=== PATIENT | male | born 1955 | race Caucasian/White ===

== ENCOUNTER 2020-06-04 07:34 | Outpatient (CLI) | payer MEDICARE, SELFPAY ==
[2020-06-04 18:35] LABS: Basophils Absolute Auto 0.1 K/mm3 (0.0-0.1); Eosinophils Absolute Auto 0.3 K/mm3 (0-0.3); Eosinophils Percent Auto 3.2 % (0-4.4); Hematocrit 43.6 % (42.0-52.0); Hemoglobin 13.8 g/dL (14.0-18.0); Immature Granulocyte Absolute 0.04 K/mm3 (0.00-0.031); Immature Granulocyte Percent A 0.4 % (0-0.5); Lymphocytes Absolute Auto 2.56 K/mm3 (0.9-3.2); Lymphocytes Percent Auto 25.9 % (18.3-44.2); Mean Corpuscular HGB Conc 31.7 g/dl (32-36); Mean Corpuscular Hemoglobin 30.7 pg (26-34); Mean Corpuscular Volume 96.9 fl (80-100); Mean Platelet Volume 9.7 fl (7.4-10.4); Monocytes Absolute Auto 0.7 K/mm3 (0.1-0.6); Monocytes Percent Auto 7.5 % (2.6-8.5); Neutrophils Absolute Auto 6.1 K/mm3 (1.3-6.7); Platelet Count Result 362 k/mm3 (150-375); Red Cell Distribution Width 14.2 % (11.5-14.5); White Blood Count 9.9 K/mm3 (4.5-10.0)
[2020-06-04 18:38] LABS: Add Urine Microscopic? YES; Appearance Urine Clear (Clear); Bilirubin Urine Negative (Negative); Blood Urine 1+ (Negative); Color Urine Yellow (Yellow); Glucose Urine UA Negative (Negative); Ketones Urine Negative (Negative); Leukocyte Esterase Ur Negative LEU/UL (Negative); Mucus Urine Rare /lpf; Nitrate Urine Negative (Negative); Protein Urine 1+ mg/dL (Negative); RBC Urine 0-2 /hpf (0-2); Specific Grav Ur 1.019 (1.001-1.035); Urobilinogen Urine Negative mg/dL (<2.0); WBC Urine 0-3 /hpf
[2020-06-04 18:53] LABS: Alanine Aminotransferase 16 U/L (4-50); Albumin Level 4.1 g/dL (3.5-5.1); Alkaline Phosphatase 73 U/L (38-126); Anion Gap 8 mmol/L (8-16); Aspartate Amino Transferase 21 U/L (17-59); Bilirubin,Total 0.3 mg/dL (0.2-1.3); Blood Urea Nitrogen 12 mg/dL (9-20); CRP 0.7 mg/dL (<1.0); Calcium 9.3 mg/dL (8.4-10.2); Carbon Dioxide 25 mmol/L (22-30); Chloride 108 mmol/L (98-107); Cholesterol 160 mg/dL (0-200); Estimated Glomerular Filt Rate > 60; Glucose 106 mg/dL (75-110); HDL Direct 58 mg/dL; Potassium 4.4 mmol/L (3.4-5.0); Sodium 141 mmol/L (137-145); Triglycerides 67 mg/dL (<150)
[2020-06-04 19:03] LABS: LDL Cholesterol Direct 95 mg/dL
[2020-06-04 19:07] LABS: Vitamin D 25 Hydroxy 28.2 ng/mL
[2020-06-04 19:23] LABS: Prostate Specific Antigen 0.7 ng/mL (< OR = 4.0)
[2020-06-08 12:30] LABS: Testosterone Free 64.6 pg/mL (35.0-155.0); Testosterone Total 417 ng/dL (250-1100)
== END 2020-06-04 07:35 | disposition home or self-care (01) ==
PROVIDERS: PCP Family Medicine; Visit Provider Family Medicine
DX: Z00.00 Encounter for general adult medical examination without abnormal findings (principal); E78.5 Hyperlipidemia, unspecified; Z79.899 Other long term (current) drug therapy; M54.9 Dorsalgia, unspecified; G89.29 Other chronic pain; F41.9 Anxiety disorder, unspecified; F32.9 Major depressive disorder, single episode, unspecified; Z82.62 Family history of osteoporosis; Z87.891 Personal history of nicotine dependence; Z82.49 Family history of ischemic heart disease and other diseases of the circulatory system; I10 Essential (primary) hypertension; N99.89 Other postprocedural complications and disorders of genitourinary system; Z12.5 Encounter for screening for malignant neoplasm of prostate
CPT/HCPCS: 36415; 80053; 80061; 81001; 82306; 82607; 82746; 84153; 84402; 84403; 84443; 85025; 86140; G0103

== ENCOUNTER 2020-06-11 08:28 | Outpatient (CLI) | payer MEDICARE, SELFPAY ==
[2020-06-11 18:58] LABS: Total Protein Urine Random 8 mg/dL
[2020-06-11 19:10] LABS: Total Protein Urine 24 Hr 56 mg/24hr (28-141); Total Volume 24 Hour Urine 700 ml
== END 2020-06-11 08:29 | disposition home or self-care (01) ==
LOC: ANHBWCLAB 08:31
PROVIDERS: PCP Family Medicine; Visit Provider Family Medicine
DX: R80.9 Proteinuria, unspecified (principal)
CPT/HCPCS: 81050; 84156

== ENCOUNTER 2020-08-21 08:28 | Outpatient (CLI) | payer MEDICARE, SELFPAY ==
--- NOTE | ~2020-08-21 | NM_ITS ---
EXAMINATION: NM ozzie stress w perfusion DATE: 08/21/2020 11:27 INDICATION: Family history of ischemic heart disease. TECHNIQUE: Rest images were obtained following intravenous administration of 9.88 mCi Tc99m tetrofosm in (Myoview). The patient was infused intravenously with Lexiscan (regadenoson). Then, 31.77 mCi Tc99 m tetrofosmin (Myoview) was administered intravenously, and stress images were obtained. Data was rec onstructed into short axis and horizontal and vertical long axis SPECT images. Gated SPECT images wer e also obtained. COMPARISON: None. FINDINGS: There is no definite reversible or fixed perfusion abnormality to suggest ischemia or infar ction. There is no segmental wall motion abnormality. Left ventricular ejection fraction measures 6 3%. IMPRESSION: 1. No definite ischemia or infarct. 2. Normal left ventricular ejection fraction measuring 63%. Reviewed, dictated and finalized at location A.
--- NOTE | 2020-08-21 10:33 | EST_ITS ---
Patient Info Name: Gloria Diego Age: 64 years : 1955 Gender: Male Ht: 67 in Wt: 180 lbs BSA: 1.98 m2 BP: 159 / 85 mmHg Exam Date: 08/21/2020 10:38 AM Exam Location: [facility] Stress Patient Status: Outpatient Admit Date: 08/21/2020 Staff Ordering Physician: Kwabena Marmolejo DO Attending Provider: Kwabena Marmolejo DO Exercise Technologist: Gildardo Butler RDCS, RT Exercise Physician: Luther Ball DO Exam Type: CA stress ozzie w NM Study Info A regadenoson stress test was performed. Summary 1. 1. Negative lexiscan stress test for ischemic ST changes by ECG criteria. 2. 2. Stable hemodynamics throughout the test. 3. 3. Nuclear scan to follow and will be reported separately. Please correlate with it. 4. 4. Patient informed of the above results. Protocol: Lexiscan Stress ECG Details Stage: REST Duration (min): 1 min : 18 sec HR (bpm): 69 SBP (mmHg): 159 DBP (mmHg): 85 Stage: REST Duration (min): 4 min : 32 sec HR (bpm): 69 SBP (mmHg): 159 DBP (mmHg): 85 Stage: STAGE 1 Duration (min): 0 min : 59 sec HR (bpm): 79 SBP (mmHg): 131 DBP (mmHg): 71 Stage: RECOVERY Duration (min): 1 min : 0 sec HR (bpm): 92 SBP (mmHg): 131 DBP (mmHg): 71 Stage: RECOVERY Duration (min): 2 min : 0 sec HR (bpm): 92 SBP (mmHg): 131 DBP (mmHg): 71 Stage: RECOVERY Duration (min): 3 min : 0 sec HR (bpm): 85 SBP (mmHg): 139 DBP (mmHg): 72 Stage: RECOVERY Duration (min): 3 min : 28 sec HR (bpm): 86 SBP (mmHg): 139 DBP (mmHg): 72 Rest HR: 69 bpm Peak HR: 93 bpm Rest Sys BP: 159 mmHg Peak Sys BP: 139 mmHg Max Pred HR: 155 bpm % Max Pred HR: 60 % Target HR: 132 bpm Max RPP: 12,927 bpm*mmHg Termination Reason: Completed protocol Cardiac Symptoms: Shortness of breath Total Time: 1 min : 0 sec Rest Brandon BP: 85 mmHg Peak Brandon BP: 72 mmHg Total Dose: 0.4 mg Resting ECG Sinus rhythm. Stress ECG No ST changes. Arrhythmias None. Report Signatures
--- NOTE | 2020-08-21 11:25 | ECHO_ITS ---
Patient Info Name: Gloria Diego Age: 64 years : 1955 Gender: Male Ht: 67 in Wt: 180 lbs BSA: 1.98 m2 HR: 69 bpm BP: 151 / 72 mmHg Technical Quality: Good Exam Date: 08/21/2020 11:34 AM Exam Location: [facility] Patient Status: Outpatient Admit Date: 08/21/2020 Staff Ordering Physician: Kwabena Marmolejo DO Mixer Blender: Gildardo Butler RDCS, RT Attending Provider: Kwabena Marmolejo DO Referring Physician: Francie HALL; Exam Type: CA echo doppler color flow Study Info Indications I47.2 - Ventricular tachycardia Complete two-dimensional, color flow and Doppler transthoracic echocardiogram is performed. Strain analysis performed. Summary 1. Complete two-dimensional, color flow and Doppler transthoracic echocardiogram is performed. 2. Left ventricular chamber dimension is normal. 3. Left ventricular systolic function is normal, estimated at 60-65%. 4. The left ventricular diastolic function is normal. 5. E/e' 7 is not elevated. 6. Global longitudinal strain is mildly abnormal at -16.7%. Left Ventricle E/e' 7 is not elevated. Global longitudinal strain is mildly abnormal at -16.7%. Left ventricular chamber dimension is normal. Left ventricular systolic function is normal, estimated at 60-65%. The left ventricular diastolic function is normal. Right Ventricle Right ventricular systolic function is normal and with normal TAPSE 2.0 cm. Right ventricular chamber dimension is normal. Left Atria Left atrial chamber dimension is normal. Right Atria Right atrial chamber dimension is normal. Aortic Valve The aortic valve is trileaflet. There is no aortic valve stenosis. There is no aortic valve regurgitation. Pulmonic Valve There is no pulmonic regurgitation. Mitral Valve There is no mitral valve stenosis. There is no mitral valve regurgitation. Tricuspid Valve There is no tricuspid valve regurgitation. Pericardium/Pleural There is no pericardial effusion. Inferior Vena Cava Normal inferior vena cava with >50% collapse upon inspiration consistent with normal right atrial pressure, 5 mmHg. Aorta The aortic root size at the sinus of Valsalva is normal. Left Ventricular Outflow Tract Name Value Normal LVOT 2D LVOT Diameter 2.0 cm LVOT Doppler LVOT Peak Gradient 5 mmHg LVOT Mean Gradient 2 mmHg LVOT VTI 21 cm LVOT VTI/AV VTI Ratio 0.8 LVOT Stroke Volume 66 ml LVOT CO 4.4 l/min LVOT CI 2.2 l/min/m2 Mitral Valve Name Value Normal MV Doppler MV Decel [place] 337 cm/s2 MV PHT 69 ms MV Area (PHT)
== END 2020-08-21 08:29 | disposition home or self-care (01) ==
PROVIDERS: PCP Family Medicine; Visit Provider Family Medicine
DX: R06.02 Shortness of breath (principal); Z82.49 Family history of ischemic heart disease and other diseases of the circulatory system; Z87.891 Personal history of nicotine dependence; E78.5 Hyperlipidemia, unspecified; R00.0 Tachycardia, unspecified
CPT/HCPCS: 78452; 93017; 93306; A9502; J2785

== ENCOUNTER 2020-09-10 00:14 | Day surgery (SDC) | payer MEDICARE, SELFPAY ==
[2020-08-28 09:11] VITALS: BMI 29.0
[2020-09-10 06:17] VITALS: BP 121/72; PULSE 83; RESP 18; TEMP 36.1; O2SAT 100
[2020-09-10] MEDS: LACTATED RINGERS 1,000 ML 150 ML IV CONT (06:22)
--- NOTE | 2020-09-10 07:08 | WPDANESEPPF ---
Anes - Initial Pre Proc Eval Procedure: Operation Date: 09/10/20 07:30 Proposed Procedures p Screening Colonoscopy - Isaias Gregg MD Date/Time: 09/10/20 07:08 Surgeon: Isaias Gregg MD Pre Op Diagnosis: neoplasm screening Patient Data Age: 64 Gender: M Height: 1.68 m Weight: 82.1 kg Last Vital Signs Temp 36.1 C L 09/10/20 06:17 Pulse 83 09/10/20 06:17 Resp 18 09/10/20 06:17 BP 121/72 09/10/20 06:17 Pulse Ox 100 09/10/20 06:17 Allergies Allergy/AdvReac Type Severity Reaction Status Date / Time No Known Allergies Allergy Verified 09/10/20 06:16 Home Medications Medication Instructions Recorded Confirmed Type atorvastatin 40 mg tablet 40 mg PO DAILY #90 tablet 05/30/20 09/10/20 Rx bupropion HCl 150 mg 24 hr tablet, 150 mg PO QAM #90 tablet 05/30/20 09/10/20 Rx extended release fluoxetine 40 mg capsule 40 mg PO DAILY #90 cap 05/30/20 09/10/20 Rx omeprazole 40 mg capsule,delayed 40 mg PO DAILY #90 cap 05/30/20 09/10/20 Rx release trazodone 50 mg tablet 100 mg PO DAILY PRN #180 tablet 05/30/20 09/10/20 Rx cyclobenzaprine 10 mg tablet 10 mg PO DAILY #90 tablet 05/31/20 09/10/20 Rx Patient hx anesthesia problems: none Family hx anesthesia problems: none PMFSH Past Medical History Medical History (Updated 06/06/20 @ 12:19 by Kwabena Marmolejo DO) Anxiety Chronic GERD patient currently on proton pump inhibitor well controlled Hypertension Surgical History Surgical History History of appendectomy Family History Family History Father Hypertension Heart problem Mother Diabetes mellitus Hypertension Heart problem Social History Social History (Updated 05/30/20 @ 14:20 by Hoa Mascorro CMA) Smoking packs per day: 1 Smoking cigarettes per day: 20.0 Years smoked: 30 Smoking pack-years: 30.00 Smoking status: Former smoker Tobacco type: cigarettes Alcohol intake: current Alcohol use details: rarely Substance use: never Substance use type: marijuana Other substance usage details: twice a week Living arrangements: with family Spiritual care concerns: No Anes - Eval Final PreProcedure Day of Procedure 09/10/20 07:08 Patient weight: overweight Heart: regular rate and rhythm Lungs: clear to auscultation and normal air movement Airway: Mallampati scale class II Neurological: alert and oriented Last oral intake: >/= 8 hours ASA classification: II Emergent: no Anesthetic plan: proceed Anesthesia type and monitoring: general GIVS Informed Consent: The patient's anesthetic plan and its attendant risks and benefits were discussed with the patient/family/POA. Questions were solicited and answers provided to the satisfaction of the patient/family/POA.
--- NOTE | 2020-09-10 07:34 | PM.HPGS ---
History of Present Illness History of Present Illness Consent: Risks, benefits, and alternatives have been discussed and questions answered. Patient agrees to proceed with procedure. Chief complaint: neoplasm screening Narrative: lGoria Diego is a 64 year old male here for first screening colonoscopy Review of Systems Constitutional: Constitutional: Denies headache(s) and Denies weakness Eyes: Eyes: Denies blurry vision ENT: Reports Normal hearing present, Denies headache(s) and Denies neck pain Cardiovascular: Cardiovascular: Denies chest pain and Denies dyspnea Respiratory: Respiratory: Denies dyspnea Gastrointestinal: Gastrointestinal: Reports no additional gastrointestinal complaints Genitourinary: Genitourinary: Denies dysuria Musculoskeletal: Musculoskeletal: Denies neck pain Integumentary/Breasts: Skin/Breast: Denies dry skin Neurologic: Reports Normal hearing present, Denies headache(s) and Denies weakness Psychiatric: Psychiatric: Denies anxiety Endocrine: Endocrine: Denies change in body appearance Hematologic/Lymphatic: Hematologic/Lymphatic: Denies easy bleeding Allergic/Immunologic: Allergic/Immunologic: Denies urticaria PMF Past Medical History Medical History (Updated 09/10/20 @ 07:36 by Isaias Gregg MD) Anxiety Chronic GERD patient currently on proton pump inhibitor well controlled Colon cancer screening Hypertension Surgical History Surgical History History of appendectomy Family History Family History Father Hypertension Heart problem Mother Diabetes mellitus Hypertension Heart problem Social History Social History (Updated 05/30/20 @ 14:20 by Hoa Mascorro CMA) Smoking packs per day: 1 Smoking cigarettes per day: 20.0 Years smoked: 30 Smoking pack-years: 30.00 Smoking status: Former smoker Tobacco type: cigarettes Alcohol intake: current Alcohol use details: rarely Substance use: never Substance use type: marijuana Other substance usage details: twice a week Living arrangements: with family Spiritual care concerns: No Meds Home Medications and Allergies Home Medications Medication Instructions Recorded Confirmed Type atorvastatin 40 mg tablet 40 mg PO DAILY #90 tablet 05/30/20 09/10/20 Rx bupropion HCl 150 mg 24 hr tablet, 150 mg PO QAM #90 tablet 05/30/20 09/10/20 Rx extended release fluoxetine 40 mg capsule 40 mg PO DAILY #90 cap 05/30/20 09/10/20 Rx omeprazole 40 mg capsule,delayed 40 mg PO DAILY #90 cap 05/30/20 09/10/20 Rx release trazodone 50 mg tablet 100 mg PO DAILY PRN #180 tablet 05/30/20 09/10/20 Rx cyclobenzaprine 10 mg tablet 10 mg PO DAILY #90 tablet 05/31/20 09/10/20 Rx Allergies Allergy/AdvReac Type Severity Reaction Status Date / Time No Known Allergies Allergy Verified 09/10/20 06:16 Vital Signs Vital Signs - 24 hr 09/10/20 06:17 Temperature 96.9 F L Pulse Rate 83 Respiratory Rate 18 Blood Pressure 121/72 Pulse Oximetry 100 Exam Const: General: comfortable and no acute distress HENMT: General nose exam: Normal nares present Eyes: General: appearance normal, both eyes and all related structures Neck: Neck: no JVD Resp: Auscultation: clear to auscultation bilaterally Cardio: Rate: regular rate Rhythm: regular rhythm GI: Inspection: non-distended GI Palp: Yes Soft to palpation Skin: General skin exam: normal color Neuro: General: gait normal Speech: normal speech Extrem: General: normal to inspection Psych: Mental Status: mental status grossly normal Assessment and Plan Assessment and plan (1) Colon cancer screening: Code(s): Z12.11 - Encounter for screening for malignant neoplasm of colon Status: Acute Assessment and Plan: colonoscopy
[2020-09-10 08:00] VITALS: BP 104/62; PULSE 59; RESP 20; O2SAT 95
[2020-09-10 08:10] VITALS: BP 114/65; PULSE 64; RESP 25; O2SAT 99
[2020-09-10 08:20] VITALS: BP 113/73; PULSE 59; RESP 16; O2SAT 99
== END 2020-09-10 08:28 | disposition home or self-care (01) ==
PROVIDERS: PCP Family Medicine; Visit Provider Internal Medicine Gastroenterology
PROC: 0DJD8ZZ Inspection of Lower Intestinal Tract, Via Natural or Artificial Opening Endoscopic (ICD-10-PCS; CPT 45378; principal; 2020-09-10 07:30)
DX: Z12.11 Encounter for screening for malignant neoplasm of colon (principal); D12.5 Benign neoplasm of sigmoid colon; D12.3 Benign neoplasm of transverse colon; K64.8 Other hemorrhoids; F41.9 Anxiety disorder, unspecified; K21.9 Gastro-esophageal reflux disease without esophagitis; I10 Essential (primary) hypertension; Z87.891 Personal history of nicotine dependence; F12.90 Cannabis use, unspecified, uncomplicated
CPT/HCPCS: 45385; 88305; J2704; J7120

== ENCOUNTER 2020-12-10 07:39 | Outpatient (CLI) | payer MEDICARE, SELFPAY ==
[2020-12-10 18:37] LABS: Basophils Absolute Auto 0.1 K/mm3 (0.0-0.1); Basophils Percent Auto 0.8 % (0.2-1.2); Eosinophils Absolute Auto 0.4 K/mm3 (0-0.3); Eosinophils Percent Auto 3.6 % (0-4.4); Hemoglobin 13.4 g/dL (14.0-18.0); Immature Granulocyte Absolute 0.03 K/mm3 (0.00-0.031); Immature Granulocyte Percent A 0.3 % (0-0.5); Lymphocytes Percent Auto 16.9 % (18.3-44.2); Mean Corpuscular HGB Conc 32.7 g/dl (32-36); Mean Corpuscular Hemoglobin 30.9 pg (26-34); Mean Corpuscular Volume 94.5 fl (80-100); Mean Platelet Volume 9.2 fl (7.4-10.4); Monocytes Absolute Auto 0.7 K/mm3 (0.1-0.6); Monocytes Percent Auto 6.6 % (2.6-8.5); Neutrophils Absolute Auto 7.2 K/mm3 (1.3-6.7); Neutrophils Percent Auto 71.8 % (45.5-73.1); Platelet Count Result 397 k/mm3 (150-375); Red Blood Count 4.34 M/mm3 (4.6-6.20); Red Cell Distribution Width 13.7 % (11.5-14.5); White Blood Count 10.1 K/mm3 (4.5-10.0)
[2020-12-10 18:59] LABS: Alanine Aminotransferase 22 U/L (4-50); Alkaline Phosphatase 102 U/L (38-126); Anion Gap 10 mmol/L (8-16); Aspartate Amino Transferase 28 U/L (17-59); Bilirubin,Total 0.7 mg/dL (0.2-1.3); Blood Urea Nitrogen 15 mg/dL (9-20); Calcium 9.7 mg/dL (8.4-10.2); Carbon Dioxide 25 mmol/L (22-30); Chloride 106 mmol/L (98-107); Cholesterol 126 mg/dL (0-200); Estimated Glomerular Filt Rate > 60; Glucose 114 mg/dL (65-110); HDL Direct 66 mg/dL; Potassium 4.1 mmol/L (3.4-5.0); Sodium 141 mmol/L (137-145); Triglycerides 92 mg/dL (<150)
[2020-12-10 19:10] LABS: LDL Cholesterol Direct 46 mg/dL
[2020-12-10 19:16] LABS: Vitamin D 25 Hydroxy 25.9 ng/mL
[2020-12-10 19:30] LABS: Prostate Specific Antigen 0.7 ng/mL (< OR = 4.0)
== END 2020-12-10 07:40 | disposition home or self-care (01) ==
PROVIDERS: Family Medicine; PCP Family Medicine; Visit Provider Family Medicine
DX: E78.5 Hyperlipidemia, unspecified (principal); I10 Essential (primary) hypertension; Z79.899 Other long term (current) drug therapy; M54.9 Dorsalgia, unspecified; G89.29 Other chronic pain; F41.9 Anxiety disorder, unspecified; F32.9 Major depressive disorder, single episode, unspecified; Z82.62 Family history of osteoporosis; Z87.891 Personal history of nicotine dependence; Z82.49 Family history of ischemic heart disease and other diseases of the circulatory system; Z12.5 Encounter for screening for malignant neoplasm of prostate
CPT/HCPCS: 36415; 80053; 80061; 82306; 84153; 85025; G0103

== ENCOUNTER 2021-06-26 07:05 | Outpatient (CLI) | payer MEDICARE, SELFPAY ==
[2021-06-26 18:49] LABS: Basophils Absolute Auto 0.1 K/mm3 (0.0-0.1); Basophils Percent Auto 0.9 % (0.2-1.2); Eosinophils Absolute Auto 0.7 K/mm3 (0-0.3); Eosinophils Percent Auto 6.4 % (0-4.4); Hematocrit 43.1 % (42.0-52.0); Hemoglobin 13.5 g/dL (14.0-18.0); Immature Granulocyte Absolute 0.05 K/mm3 (0.00-0.031); Immature Granulocyte Percent A 0.4 % (0-0.5); Lymphocytes Absolute Auto 3.31 K/mm3 (0.9-3.2); Lymphocytes Percent Auto 29.2 % (18.3-44.2); Mean Corpuscular HGB Conc 31.3 g/dl (32-36); Mean Corpuscular Hemoglobin 30.9 pg (26-34); Mean Corpuscular Volume 98.6 fl (80-100); Mean Platelet Volume 9.6 fl (7.4-10.4); Monocytes Absolute Auto 0.9 K/mm3 (0.1-0.6); Monocytes Percent Auto 8.1 % (2.6-8.5); Neutrophils Absolute Auto 6.2 K/mm3 (1.3-6.7); Platelet Count Result 418 k/mm3 (150-375); Red Blood Count 4.37 M/mm3 (4.6-6.20); Red Cell Distribution Width 14.7 % (11.5-14.5); White Blood Count 11.3 K/mm3 (4.5-10.0)
[2021-06-26 20:00] LABS: Hemoglobin A1C 5.3 % (<5.7)
== END 2021-06-26 07:06 | disposition home or self-care (01) ==
PROVIDERS: PCP Family Medicine; Visit Provider Family Medicine
DX: D64.9 Anemia, unspecified (principal); N52.9 Male erectile dysfunction, unspecified; R73.09 Other abnormal glucose
CPT/HCPCS: 36415; 83036; 85025

== ENCOUNTER 2021-07-14 08:31 | Outpatient (CLI) | payer MEDICARE, SELFPAY ==
--- NOTE | ~2021-07-14 | XR_ITS ---
XR_[id number]_CR DATE: 07/14/2021 08:54 INDICATION: Mid to lower rib pain after injury. TECHNIQUE: PA chest. Multiple views of right ribs and left RIBS COMPARISON: None FINDINGS: Normal heart size. There is aortic arch calcification. No hilar or mediastinal enlargement. No pulmonary infiltrate or consolidation, pleural effusion or pulmonary vascular congestion or pneum othorax. No left or right rib fracture or bone destruction. IMPRESSION: No rib fracture is detected No active cardiopulmonary disease Aortic atherosclerosis Reviewed, dictated and finalized at Location A. Reviewed, dictated and finalized at location A.
[2021-07-14 20:18] LABS: Appearance Urine Clear (Clear); Bilirubin Urine Negative (Negative); Blood Urine Trace-lysed (Negative); Color Urine Yellow (Yellow); Glucose Urine UA Negative (Negative); Ketones Urine Negative (Negative); Leukocyte Esterase Ur Negative LEU/UL (NEGATIVE); Nitrate Urine Negative (Negative); Protein Urine Negative (Negative); Urobilinogen Urine 0.2 mg/dL (<2.0)
[2021-07-14 20:50] LABS: RBC Urine 0-2 /hpf (0-2); WBC Urine 0-3 /hpf (0-3)
[2021-07-14 21:01] LABS: Add Urine Microscopic? YES
== END 2021-07-14 08:32 | disposition home or self-care (01) ==
PROVIDERS: PCP Family Medicine; Visit Provider Family Medicine
DX: R07.81 Pleurodynia (principal); D72.829 Elevated white blood cell count, unspecified; R35.0 Frequency of micturition; I70.0 Atherosclerosis of aorta
CPT/HCPCS: 71111; 81001; 87086

== ENCOUNTER 2021-12-10 07:40 | Outpatient (CLI) | payer MEDICARE, SELFPAY ==
[2021-12-10 19:14] LABS: Basophils Absolute Auto 0.1 K/mm3 (0.0-0.1); Basophils Percent Auto 1.2 % (0.2-1.2); Eosinophils Absolute Auto 0.4 K/mm3 (0-0.3); Eosinophils Percent Auto 3.8 % (0-4.4); Hematocrit 43.4 % (42.0-52.0); Hemoglobin 13.4 g/dL (14.0-18.0); Immature Granulocyte Absolute 0.05 K/mm3 (0.00-0.031); Immature Granulocyte Percent A 0.5 % (0-0.5); Lymphocytes Absolute Auto 2.03 K/mm3 (0.9-3.2); Lymphocytes Percent Auto 21.8 % (18.3-44.2); Mean Corpuscular HGB Conc 30.9 g/dl (32-36); Mean Corpuscular Hemoglobin 30.5 pg (26-34); Mean Corpuscular Volume 98.9 fl (80-100); Mean Platelet Volume 9.5 fl (7.4-10.4); Monocytes Absolute Auto 0.8 K/mm3 (0.1-0.6); Monocytes Percent Auto 8.3 % (2.6-8.5); Neutrophils Percent Auto 64.4 % (45.5-73.1); Platelet Count Result 406 k/mm3 (150-375); Red Blood Count 4.39 M/mm3 (4.6-6.20); Red Cell Distribution Width 14.9 % (11.5-14.5); White Blood Count 9.3 K/mm3 (4.5-10.0)
[2021-12-10 19:22] LABS: Alanine Aminotransferase 20 U/L (6-50); Albumin Level 4.1 g/dL (3.5-5.1); Alkaline Phosphatase 84 U/L (38-126); Anion Gap 8 mmol/L (8-16); Aspartate Amino Transferase 48 U/L (17-59); Bilirubin,Total 0.4 mg/dL (0.2-1.3); Blood Urea Nitrogen 11 mg/dL (9-20); Calcium 8.6 mg/dL (8.4-10.2); Carbon Dioxide 25 mmol/L (22-30); Chloride 107 mmol/L (98-107); Estimated Glomerular Filt Rate > 60; Glucose 105 mg/dL (65-110); Potassium 3.9 mmol/L (3.4-5.0); Sodium 140 mmol/L (137-145)
[2021-12-10 19:53] LABS: Prostate Specific Antigen 1.2 ng/mL (< OR = 4.0)
[2021-12-10 20:10] LABS: Cholesterol 139 mg/dL (0-200); HDL Direct 81 mg/dL; Triglycerides 45 mg/dL (<150)
[2021-12-10 20:22] LABS: LDL Cholesterol Direct 39 mg/dL
== END 2021-12-10 07:41 | disposition home or self-care (01) ==
PROVIDERS: PCP Family Medicine; Visit Provider Family Medicine
DX: Z00.00 Encounter for general adult medical examination without abnormal findings (principal); Z12.5 Encounter for screening for malignant neoplasm of prostate; E78.5 Hyperlipidemia, unspecified; Z79.899 Other long term (current) drug therapy; D64.9 Anemia, unspecified
CPT/HCPCS: 36415; 80053; 80061; 84153; 85025; G0103

== ENCOUNTER 2022-05-06 14:27 | Outpatient (CLI) | payer MEDICARE, SELFPAY ==
--- NOTE | ~2022-05-06 | XR_ITS ---
XR hand RT min 3V DATE: 05/06/2022 14:35 INDICATION: Right hand pain, first metacarpophalangeal pain for 6 months TECHNIQUE: 3 views COMPARISON: None FINDINGS: There is prominent joint space narrowing and spurring at the first carpometacarpal joint co nsistent with osteoarthritis. There is mild osteoarthritis at the second and third metacarpophalangea l joints. No erosive change. No fracture, dislocation, periosteal reaction or bone destruction. IMPRESSION: Polyarticular osteoarthritis, most prominent at first carpometacarpal joint Reviewed, dictated and finalized at location B. IMPRESSION: Polyarticular osteoarthritis, most prominent at first carpometacarp al joint
== END 2022-05-06 14:28 | disposition home or self-care (01) ==
LOC: ANHBWCIMG 14:28
PROVIDERS: PCP Family Medicine; Visit Provider Family Medicine
DX: M19.041 Primary osteoarthritis, right hand (principal)
CPT/HCPCS: 73130

== ENCOUNTER 2022-05-19 08:04 | Outpatient (CLI) | payer MEDICARE, SELFPAY ==
--- NOTE | ~2022-05-19 | XR_ITS ---
EXAMINATION: XR humerus RT DATE: 05/19/2022 08:43 INDICATION: Right arm pain. TECHNIQUE: 2 views of right humerus were obtained. COMPARISON: None. FINDINGS: Bone alignment is normal. No fracture. There is mild osteoarthritis of glenohumeral joint a nd elbow joint and moderate osteoarthritis of acromioclavicular joint. IMPRESSION: 1. Polyarticular osteoarthritis. Reviewed, dictated and finalized at location A.
[2022-05-19 18:38] LABS: Alanine Aminotransferase 28 U/L (6-50); Albumin Level 4.5 g/dL (3.5-5.1); Alkaline Phosphatase 90 U/L (38-126); Anion Gap 7 mmol/L (8-16); Aspartate Amino Transferase 49 U/L (17-59); Bilirubin,Total 0.4 mg/dL (0.2-1.3); Blood Urea Nitrogen 16 mg/dL (9-20); Calcium 9.2 mg/dL (8.4-10.2); Carbon Dioxide 27 mmol/L (22-30); Chloride 105 mmol/L (98-107); Estimated Glomerular Filt Rate > 60; Glucose 90 mg/dL (65-110); Potassium 4.2 mmol/L (3.4-5.0); Sodium 139 mmol/L (137-145)
[2022-05-19 18:39] LABS: Basophils Absolute Auto 0.1 K/mm3 (0.0-0.1); Basophils Percent Auto 1.1 % (0.2-1.2); Eosinophils Absolute Auto 0.3 K/mm3 (0-0.3); Eosinophils Percent Auto 3.2 % (0-4.4); Hematocrit 41.9 % (42.0-52.0); Hemoglobin 13.4 g/dL (14.0-18.0); Immature Granulocyte Absolute 0.05 K/mm3 (0.00-0.031); Immature Granulocyte Percent A 0.6 % (0-0.5); Lymphocytes Absolute Auto 1.57 K/mm3 (0.9-3.2); Lymphocytes Percent Auto 18.5 % (18.3-44.2); Mean Corpuscular Hemoglobin 32.1 pg (26-34); Mean Corpuscular Volume 100.5 fl (80-100); Mean Platelet Volume 9.3 fl (7.4-10.4); Monocytes Absolute Auto 0.7 K/mm3 (0.1-0.6); Monocytes Percent Auto 8.1 % (2.6-8.5); Neutrophils Absolute Auto 5.8 K/mm3 (1.3-6.7); Neutrophils Percent Auto 68.5 % (45.5-73.1); Platelet Count Result 390 k/mm3 (150-375); Red Blood Count 4.17 M/mm3 (4.6-6.20); Red Cell Distribution Width 14.8 % (11.5-14.5); White Blood Count 8.5 K/mm3 (4.5-10.0)
[2022-05-19 19:08] LABS: Vitamin D 25 Hydroxy 31.5 ng/mL
== END 2022-05-19 08:05 | disposition home or self-care (01) ==
PROVIDERS: PCP Family Medicine; Visit Provider Family Medicine
DX: G47.00 Insomnia, unspecified (principal); G47.33 Obstructive sleep apnea (adult) (pediatric); M72.0 Palmar fascial fibromatosis [Dupuytren]; S46.219A Strain of muscle, fascia and tendon of other parts of biceps, unspecified arm, initial encounter; D64.9 Anemia, unspecified; N40.0 Benign prostatic hyperplasia without lower urinary tract symptoms; N52.9 Male erectile dysfunction, unspecified; R79.89 Other specified abnormal findings of blood chemistry; E78.5 Hyperlipidemia, unspecified; K21.9 Gastro-esophageal reflux disease without esophagitis; M54.9 Dorsalgia, unspecified; F41.9 Anxiety disorder, unspecified; G89.29 Other chronic pain; F32.9 Major depressive disorder, single episode, unspecified; M79.603 Pain in arm, unspecified; Z79.899 Other long term (current) drug therapy; M19.011 Primary osteoarthritis, right shoulder; X58.XXXA Exposure to other specified factors, initial encounter
CPT/HCPCS: 36415; 73060; 80053; 82306; 85025

== ENCOUNTER 2022-05-29 07:30 | Outpatient (CLI) | payer MEDICARE, SELFPAY ==
--- NOTE | ~2022-05-29 | US_ITS ---
EXAMINATION: US aorta DATE: 05/29/2022 08:28 CDT INDICATION: Personal history of nicotine dependence TECHNIQUE: Grayscale, color Doppler, and pulsed Doppler images of the aorta and common iliac arteries were obtained. COMPARISON: None. FINDINGS: The proximal aorta measures 2.7 cm greatest sagittal dimension. The mid aorta measures 2.2 cm greates t sagittal dimension. The distal aorta measures 1.8 cm greatest sagittal dimension. The right common internal iliac artery measures 1.1 cm. The left common iliac artery measures 1.1 cm. There is moderat e atherosclerotic plaque. IMPRESSION: 1. Normal caliber aorta without evidence for aneurysm. Reviewed, dictated and finalized at location A.
== END 2022-05-29 07:31 | disposition home or self-care (01) ==
PROVIDERS: PCP Family Medicine; Visit Provider Family Medicine
DX: Z87.891 Personal history of nicotine dependence (principal)
CPT/HCPCS: 76775

== ENCOUNTER 2022-09-03 08:35 | Outpatient (CLI) | payer MEDICARE, SELFPAY ==
--- NOTE | ~2022-09-03 | MR_ITS ---
MRI of the right shoulder Technique: Axial proton-density fat-sat images, coronal proton density fat-sat and T2 fat-sat images, and sagittal T1-weighted and T2 fat-sat images were acquired. Clinical History: Osteoarthritis Findings: There is advanced degenerative change at the AC joint, with fluid in the joint space. Corac oclavicular, coracoacromial, and coracohumeral ligaments are intact. There is probable complete, full-thickness tear of the entire supraspinatus tendon, which is retracte d to the 12:00 position of the humeral head. Fluid-filled gap measures approximately 2.9 x 3.8 cm in extent. Tear may extend to the anterior most portion of the infraspinatus tendon. The bulk of the inf raspinatus tendon otherwise is intact. There is full-thickness tearing involving the majority of the subscapularis tendon, with inferior mos t fibers remaining intact. Tendon of long head of the biceps is not clearly visualized, presumably ru ptured and retracted out of the [id number]-te-xrop. No discrete, detached labral tear identified. Inferior glenohumeral ligament is intact. There is a small glenohumeral joint effusion, with fluid pa ssing through the rotator cuff defect into the subacromial/subdeltoid bursa. No muscle atrophy presen t. There is probable minimal edematous change of the supraspinatus muscle belly. No significant degen erative change of the glenohumeral joint. Impression: Complete, full-thickness tear of the entire supraspinatus tendon, probably extending to involve the a nterior most portion of the infraspinatus tendon. Please see details above. Full-thickness tear involving the majority of the superior and midportion of the subscapularis tendon . Inferior subscapularis fibers appear to remain intact. Rupture of the proximal tendon of long head of the biceps, which is presumably retracted outside the field of view into the upper arm. Advanced AC joint degenerative change. Glenohumeral joint effusion with fluid passing through the rotator cuff defect into the subacromial/s ubdeltoid bursa. Reviewed, dictated and finalized at location . Impression: Complete, full-thickness tear of the entire supraspinatus tendon, probably exte nding to involve the anterior most portion of the infraspinatus tendon. Please see details above. Full-thickness tear involving the majority of the superior and midportion of th e subscapularis tendon. Inferior subscapularis fibers appear to remain intact. Rupture of the proximal tendon of long head of the biceps, which is presumably retracted outside the field of view into the upper arm. Advanced AC joint degenerative change. Glenohumeral joint effusion with fluid passing through the rotator cuff defect into the subacromial/subdeltoid bursa.
== END 2022-09-03 08:36 | disposition home or self-care (01) ==
PROVIDERS: PCP Nurse Practitioner Adult Health; Visit Provider Nurse Practitioner Adult Health
DX: M19.011 Primary osteoarthritis, right shoulder (principal); M75.121 Complete rotator cuff tear or rupture of right shoulder, not specified as traumatic
CPT/HCPCS: 73221

== ENCOUNTER 2023-01-14 08:05 | Outpatient (CLI) | payer MEDICARE, SELFPAY ==
[2023-01-14 21:00] LABS: Alanine Aminotransferase 15 U/L (6-50); Alkaline Phosphatase 85 U/L (38-126); Anion Gap 5 mmol/L (8-16); Aspartate Amino Transferase 28 U/L (17-59); Bilirubin,Total 0.4 mg/dL (0.2-1.3); Blood Urea Nitrogen 15 mg/dL (9-20); Calcium 9.1 mg/dL (8.4-10.2); Carbon Dioxide 26 mmol/L (22-30); Chloride 108 mmol/L (98-107); Cholesterol 166 mg/dL (0-200); Estimated Glomerular Filt Rate > 60; Glucose 101 mg/dL (65-110); HDL Direct 97 mg/dL; Potassium 4.1 mmol/L (3.4-5.0); Sodium 139 mmol/L (137-145); Triglycerides 60 mg/dL (<150)
[2023-01-14 21:09] LABS: Basophils Absolute Auto 0.1 K/mm3 (0.0-0.1); Basophils Percent Auto 1.1 % (0.2-1.2); Eosinophils Absolute Auto 0.3 K/mm3 (0-0.3); Eosinophils Percent Auto 3.5 % (0-4.4); Hematocrit 42.1 % (42.0-52.0); Hemoglobin 13.2 g/dL (14.0-18.0); Immature Granulocyte Absolute 0.03 K/mm3 (0.00-0.031); Immature Granulocyte Percent A 0.3 % (0-0.5); Lymphocytes Absolute Auto 2.06 K/mm3 (0.9-3.2); Lymphocytes Percent Auto 21.8 % (18.3-44.2); Mean Corpuscular HGB Conc 31.4 g/dl (32-36); Mean Corpuscular Hemoglobin 30.5 pg (26-34); Mean Corpuscular Volume 97.2 fl (80-100); Mean Platelet Volume 9.8 fl (7.4-10.4); Monocytes Absolute Auto 0.6 K/mm3 (0.1-0.6); Monocytes Percent Auto 6.6 % (2.6-8.5); Neutrophils Absolute Auto 6.3 K/mm3 (1.3-6.7); Neutrophils Percent Auto 66.7 % (45.5-73.1); Platelet Count Result 364 k/mm3 (150-375); Red Blood Count 4.33 M/mm3 (4.6-6.20); Red Cell Distribution Width 16.4 % (11.5-14.5); White Blood Count 9.4 K/mm3 (4.5-10.0)
[2023-01-14 21:11] LABS: LDL Cholesterol Direct 58 mg/dL
== END 2023-01-14 08:06 | disposition home or self-care (01) ==
LOC: ANHBWCLAB 08:06
PROVIDERS: PCP Nurse Practitioner Adult Health; Visit Provider Nurse Practitioner Adult Health
DX: E78.5 Hyperlipidemia, unspecified (principal)
CPT/HCPCS: 36415; 80053; 80061; 85025

== ENCOUNTER 2023-06-16 08:56 | Outpatient (CLI) | payer MEDICARE, SELFPAY ==
[2023-06-16 20:54] LABS: Basophils Absolute Auto 0.1 K/mm3 (0.0-0.1); Basophils Percent Auto 0.7 % (0.2-1.2); Eosinophils Absolute Auto 0.3 K/mm3 (0-0.3); Eosinophils Percent Auto 2.1 % (0-4.4); Hematocrit 46.5 % (42.0-52.0); Hemoglobin 14.5 g/dL (14.0-18.0); Immature Granulocyte Absolute 0.06 K/mm3 (0.00-0.031); Immature Granulocyte Percent A 0.5 % (0-0.5); Lymphocytes Absolute Auto 1.93 K/mm3 (0.9-3.2); Lymphocytes Percent Auto 15.1 % (18.3-44.2); Mean Corpuscular HGB Conc 31.2 g/dl (32-36); Mean Corpuscular Hemoglobin 31.1 pg (26-34); Mean Corpuscular Volume 99.8 fl (80-100); Mean Platelet Volume 9.4 fl (7.4-10.4); Monocytes Absolute Auto 0.8 K/mm3 (0.1-0.6); Neutrophils Absolute Auto 9.6 K/mm3 (1.3-6.7); Neutrophils Percent Auto 75.6 % (45.5-73.1); Platelet Count Result 440 k/mm3 (150-375); Red Blood Count 4.66 M/mm3 (4.6-6.20); Red Cell Distribution Width 16.2 % (11.5-14.5); White Blood Count 12.7 K/mm3 (4.5-10.0)
[2023-06-16 21:07] LABS: Alanine Aminotransferase 32 U/L (6-50); Albumin Level 4.7 g/dL (3.5-5.1); Alkaline Phosphatase 92 U/L (38-126); Anion Gap 6 mmol/L (4-12); Aspartate Amino Transferase 54 U/L (17-59); Bilirubin,Total 0.6 mg/dL (0.2-1.3); Blood Urea Nitrogen 15 mg/dL (9-20); Calcium 9.9 mg/dL (8.4-10.2); Carbon Dioxide 25 mmol/L (22-30); Chloride 108 mmol/L (98-107); Cholesterol 170 mg/dL (0-200); Estimated Glomerular Filt Rate > 60; Glucose 91 mg/dL (65-110); Potassium 4.3 mmol/L (3.4-5.0); Sodium 139 mmol/L (137-145); Triglycerides 70 mg/dL (<150)
[2023-06-16 21:11] LABS: Vitamin D 25 Hydroxy 34.8 ng/mL
[2023-06-16 21:13] LABS: LDL Cholesterol Direct 43 mg/dL
[2023-06-16 21:31] LABS: Prostate Specific Antigen 0.9 ng/mL (< OR = 4.0)
[2023-06-16 22:10] LABS: Folic Acid > 20.0 ng/mL (2.76->20)
[2023-06-16 22:11] LABS: HDL Direct 140 mg/dL
[2023-06-16 22:39] LABS: Iron 95 ug/dL (49-181)
[2023-06-16 22:50] LABS: Percent Iron Saturation 25 % (20-50)
== END 2023-06-16 08:57 | disposition home or self-care (01) ==
PROVIDERS: PCP Nurse Practitioner Adult Health; Visit Provider Nurse Practitioner Adult Health
DX: E78.5 Hyperlipidemia, unspecified (principal); R41.3 Other amnesia; D64.9 Anemia, unspecified; Z12.5 Encounter for screening for malignant neoplasm of prostate; R79.89 Other specified abnormal findings of blood chemistry; Z79.899 Other long term (current) drug therapy
CPT/HCPCS: 36415; 80053; 80061; 82306; 82607; 82728; 82746; 83540; 83550; 84153; 84443; 85025; G0103

== ENCOUNTER 2023-06-17 10:05 | Outpatient (CLI) | payer MEDICARE, SELFPAY ==
[2023-06-18 10:18] LABS: Protein, Total 7.1 g/dL (6.1-8.1)
[2023-06-18 15:08] LABS: Albumin 4.5 g/dL (3.8-4.8); Alpha 1 Globulin 0.3 g/dL (0.2-0.3); Alpha 2 Globulin 0.6 g/dL (0.5-0.9); Beta 1 Globulin 0.5 g/dL (0.4-0.6); Gamma Globulin 0.9 g/dL (0.8-1.7)
== END 2023-06-17 10:06 | disposition home or self-care (01) ==
PROVIDERS: PCP Nurse Practitioner Adult Health; Visit Provider Nurse Practitioner Adult Health
DX: D72.829 Elevated white blood cell count, unspecified (principal); R63.4 Abnormal weight loss; R61 Generalized hyperhidrosis
CPT/HCPCS: 36415; 84155; 84165

== ENCOUNTER 2023-06-22 11:04 | Outpatient (CLI) | payer MEDICARE, SELFPAY ==
--- NOTE | ~2023-06-22 | MR_ITS ---
MRI of the brain Clinical History: Amnesia Technique: Axial and sagittal T1-weighted images were acquired. These were followed by axial T2-weigh kassandra, diffusion weighted, gradient, and FLAIR images. Findings: There is no acute infarct, acute intracranial hemorrhage, or mass lesion. There are moderat e chronic microvascular ischemic changes in the periventricular white matter bilaterally. Ventricles and subarachnoid spaces are unremarkable. Orbits are unremarkable. Paranasal sinuses and m astoid air cells are clear. Major intracranial flow voids are intact. Sagittal midline structures are intact. IMPRESSION: No acute abnormality. Moderate chronic microvascular ischemic changes. Reviewed, dictated and finalized at location M.
== END 2023-06-22 11:05 ==
LOC: GOSHIMG 11:05
PROVIDERS: PCP Nurse Practitioner Adult Health; Visit Provider Nurse Practitioner Adult Health
DX: R41.3 Other amnesia (principal)
CPT/HCPCS: 70551

== ENCOUNTER 2024-07-17 08:39 | Outpatient (CLI) | payer MEDICARE, SELFPAY ==
--- OUTSIDE RECORDS SUMMARY | 2024-07-17 09:01 | XMS_ITS | Referral Summary ---
Author Organization [facility] Address [address] [place] [address] Care Team Providers Care Diamond Die Polisher Name Role Phone Branden Ramírez MD Unavailable [phone] Cristian Longo MD Primary Care Provider [phone] Allergies No known active allergies Medications amLODIPine (NORVASC) 10 mg tablet Take 1 tablet (10 mg total) by mouth daily 3 Active atorvastatin (LIPITOR) 40 mg tablet Take 1 tablet (40 mg total) by mouth daily 3 Active buPROPion XL (WELLBUTRIN XL) 300 mg 24 hr tablet Take 1 tablet (300 mg total) by mouth daily 3 Active FLUoxetine (PROzac) 40 mg capsule Take 1 capsule (40 mg total) by mouth daily 3 Active omeprazole (PriLOSEC) 40 mg capsule Take 1 capsule (40 mg total) by mouth daily 3 Active traZODone (DESYREL) 50 mg tablet Take 1 tablet (50 mg total) by mouth nightly 3 Active cyclobenzaprine (FLEXERIL) 10 mg tablet Take 1 tablet (10 mg total) by mouth daily Active sildenafiL (VIAGRA) 100 mg tablet Take 1 tablet (100 mg total) by mouth daily as needed for erectile dysfunction Active docusate sodium (COLACE) 100 mg capsuleIndicati ons:constipatio n Take 1 capsule (100 mg total) by mouth 2 (two) times a day 30 capsule 3 Active Active Problems Problem Noted Date Diagnosed Date Complete tear of right rotator cuff 09/22/2022 Social History Tobacco Use Types Packs/Day Years Used Date Smoking Tobacco: Former Cigarettes Q uit: 2017 AUDIT-C Answer Date Recorded Q1: How often do you have a drink containing alcohol? 4 or more times a week 09/28/2022 Q2: How many drinks containi ng alcohol do you have on a typical day when you are drinking? 5 or 6 Q3: How often do you have si x or more drinks on one occasion? Weekly 09/28/2022 Personal Safety Answer Date Recorded Have you ever been in or are you currently in a harmful physical or emotional relationship or is someone making you feel afraid or unsafe? 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 Gender Identity Not on file Sexual Orientation Not on file Last Filed Vital Signs Vital Sign Reading Time Taken Comments Blood Pressure 141/80 10/07/2022 12:15 PM CDT Pulse 82 10/07/2022 12:20 PM CDT Temperature 36.3 C (97.4 F) 10/07/2022 12:15 PM CDT Respiratory Rate 18 10/07/2022 12:20 PM CDT Oxygen Saturation 95% 10/07/2022 12:20 PM CDT Inhaled Oxygen Concentration - - Weight 75.3 kg (166 lb 0.1 oz) 10/07/2022 7:07 A M CDT Height 167.6 cm (5' 6) 10/07/2022 7:07 AM CDT Body Mass Index 26.79 10/07/2022 7:07 AM CDT Plan of Treatment Not on file Medical Devices Implanted Type Area Cw Operator Device Identifier Shelf Expiration Date Model / Serial / Lot [employer] Corkscrew L4.75 Mr Tape Full Thread [place] Suture Biocomposite Sterile Disposable Latex Free [id number] - [id number] Implanted:Qty: 1 on 10/07/2022 by Branden Ramírez MD at [facility] Right: Shoulder [employer] [id number] 06/07/2026 AR-1927BC T-475 / / [id number] [employer] Corkscrew L4.75 Mr Tape Full Thread [place] Suture Biocomposite Sterile Disposable Latex Free [id number] - [id number] Implanted:Qty: 1 on 10/07/2022 by Branden Ramírez MD at [facility] Right: Shoulder [employer] [id number] 06/07/2026 AR-1927BC T-475 / / [id number] [employer] Corkscrew L4.75 Mr Tape Full Thread [place] Suture Biocomposite Sterile Disposable Latex Free [id number] - [id number] Implanted:Qty: 1 on 10/07/2022 by Branden Ramírez MD at [facility] Right: Shoulder [employer] [id number] 06/07/2026 AR-1927BC T-475 / / [id number] [employer] Ar-2324 Bcm Swivelock 4.75mm 24.5mm Self Punch Vent Shoulder Ballwin Suture - [id number] Implanted:Qty: 1 on 10/07/2022 by Branden Ramírez MD at [facility] Right: Shoulder [employer] [id number] 07/08/2026 AR-2324BC M / / [id number] [employer] Ar-2324 Bcm Swivelock 4.75mm 24.5mm Self Punch Vent Shoulder [place] Suture - [id number] Implanted:Qty: 1 on 10/07/2022 by Branden Ramírez MD at [facility] Right: Shoulder [employer] [id number] 07/08/2026 AR-2324BC M / / [id number] Insurance [employer] MEDICARE HMO Care Teams Diamond Die Polisher Relationship Specialty Start Date End Date Cristian Longo MD PCP - General Family Practice 09/25/22 Branden Ramírez MD Consulting Physician Orthopedic Surgery 09/23/22
--- OUTSIDE RECORDS SUMMARY | 2024-07-17 09:01 | XMS_ITS | Clinical Summary ---
Author Organization [facility] Address [address] [place] [address] Care Team Providers Care Wildlife Forensic Geneticist Name Role Phone Branden Ramírez MD Unavailable [phone] Cristian Longo MD Primary Care Provider [phone] Allergies No known active allergies Medications amLODIPine [...] Complete tear of right rotator cuff 09/22/2022 Surgical History Surgery Date Site/Laterality Comments APPENDECTOMY COLONOSCOPY NOSE SURGERY Medical History Medical History Date Comments Complete tear of right rotator cuff, unspecified whether traumatic Anxiety HTN (hypertension) HLD (hyperlipidemia) GERD (gastroesophageal reflux disease) Social History Tobacco Use Types Packs/Day Years [...] on file 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 Gender Identity Not on file Sexual Orientation Not on file Obstetrics History Last Filed Vital Signs Vital Sign Reading [...] 10/07/2022 7:07 AM CDT Plan of Treatment Health Maintenance Due Date Last Done Comments Colon Cancer Screening-Colonoscopy 1954 Depression Screening 1954 Hepatitis C Screening 1954 Prostate Cancer Screening-PSA 1954 DTaP/Tdap/Td Vaccine (1 - Tdap) 1965 Hepatitis B Screening 1972 Pneumococcal vaccine 65+ (1 of 1 - PCV) 2004 Zoster Vaccine (1 of 2) 2004 Abdominal Aortic Aneurysm (AAA) Screen 11/22/2019 Well Visit 65+ 11/22/2019 Fall Risk Assessment 10/08/2023 10/07/2022 Influenza Vaccine (Season Ended) 2024 Medical Devices Implanted Type Area Professional Nursing Tutor Device Identifier Shelf Expiration Date Model / Serial / Lot [employer] Corkscrew L4.75 Mr Tape Full Thread [place] Suture Biocomposite Sterile Disposable Latex Free [id number] - [id number] Implanted:Qty: 1 on 10/07/2022 by Branden Ramírez MD at [facility] Right: Shoulder [employer] [id number] 06/07/2026 AR-1927BC T-475 / / [id number] [employer] Corkscrew L4.75 Mr Tape Full Thread [place] Suture Biocomposite Sterile Disposable Latex Free [id number] - [id number] Implanted:Qty: 1 on 10/07/2022 by Branden Ramírez MD at [facility] Right: Shoulder [employer] [id number] 06/07/2026 AR-1927BC T-475 / / [id number] [employer] Corkscrew L4.75 Mr Tape Full Thread [place] Suture Biocomposite Sterile Disposable Latex Free [id number] - [id number] Implanted:Qty: 1 on 10/07/2022 by Branden Ramírez MD at [facility] Right: Shoulder [employer] [id number] 06/07/2026 AR-1927BC T-475 / / [id number] [employer] Ar-2324 Bcm Swivelock 4.75mm 24.5mm Self Punch Vent Shoulder [place] Suture - [id number] Implanted:Qty: 1 on 10/07/2022 by Branden Ramírez MD at [facility] Right: Shoulder [employer] [id number] 07/08/2026 AR-2324BC M / / [id number] [employer] Ar-2324 Bcm Swivelock 4.75mm 24.5mm Self Punch Vent Shoulder [place] Suture - [id number] Implanted:Qty: 1 on 10/07/2022 by Branden Ramírez MD at [facility] Right: Shoulder [employer] [id number] 07/08/2026 AR-2324BC M / / [id number] Insurance [employer] MEDICARE HMO Care Teams Wildlife Forensic Geneticist Relationship Specialty Start Date End Date Cristian Longo MD PCP - General Family Practice 09/25/22 Branden Ramírez MD Consulting Physician Orthopedic Surgery 09/23/22
--- OUTSIDE RECORDS SUMMARY | 2024-07-17 09:01 | XMS_ITS | Clinical Summary ---
Author Organization [facility] Address [address] [place] [address] Phone Care Team Providers Care Audio Visual Director Name Role Phone Lilian Sales Devon AMEZCUA Primary Care Provider [phone] Allergies No known active allergies Medications donepezil (ARICEPT) 5 MG Tablet TAKE 1 TABLET BY MOUTH EVERY DAY AT BEDTIME 07/20/2023 Active traZODone (DESYREL) 50 MG Tablet Take 50 mg by mouth nightly. Active amLODIPine (NORVASC) 10 MG Tablet Take 10 mg by mouth daily. Active atorvastatin (LIPITOR) 40 MG Tablet Take 40 mg by mouth daily. Active FLUoxetine (PROZAC) 40 MG Capsule Take 40 mg by mouth daily. Active omeprazole (PriLOSEC) 40 MG CAPSULE DELAYED RELEASE Take 40 mg by mouth daily. Active buPROPion (WELLBUTRIN) 300 MG TABLET SR 24 HR XL tablet Take 300 mg by mouth every morning. Active MEMANTINE HCL PO Take 10 mg by mouth. 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 Gender Identity Not on file Sexual Orientation Not on file Last Filed Vital Signs Vital Sign Reading Time Taken Comments Blood Pressure - - Pulse - - Temperature - - Respiratory Rate - - Oxygen Saturation - - Inhaled Oxygen Concentration - - Weight - - Height 170.2 cm (5' 7) 09/22/2023 2:01 PM CDT Body Mass Index - - Plan of Treatment Health Maintenance Due Date Last Done Comments Hepatitis C Virus (HCV) Screening 1954 TdaP Immunization 1954 Pneumococcal Immunization (50+ years) (1 of 2 - PCV) 1973 Colonoscopy 11/22/1999 Colorectal Cancer Screening 11/22/1999 Cologuard 2004 Immunochemical Fecal Occult Blood 2004 Lung Cancer Screening 2004 PSA Discussion 2009 AAA Screening Ultrasound 11/22/2019 Influenza Immunization (#1) 10/10/202312/09, 11/06/2021, 12/10/2020, Additional history exists SARS-COV-2 Immunization ( season) 2023 11/06/2021, 01/27/2021, 03/22/2020, Additional history exists Zoster Immunization Completed 08/29/2020, 0 Respiratory Syncytial Virus (RSV) Immunization (Adult) Completed 12/23/2022 Hepatitis B Immunization Aged Out No longer eligible based on patient's age to complete this topic Meningococcal Immunization (ACWY) Aged Out No longer eligible based on patient's age to complete this topic Rotavirus Immunization Aged Out No lo nger eligible based on patient's age to complete this topic Insurance MEDICARE C HUMANA Care Teams Audio Visual Director Relationship Specialty Start Date End Date Lilian Sales APRN PCP - General Advanced Practice Nurse 09/21/23
[2024-07-17 20:24] LABS: Cholesterol 181 mg/dL (0-200); Triglycerides 59 mg/dL (<150)
[2024-07-17 20:25] LABS: Alanine Aminotransferase 25 U/L (6-50); Albumin Level 4.2 g/dL (3.5-5.1); Alkaline Phosphatase 95 U/L (38-126); Anion Gap 7 mmol/L (4-12); Aspartate Amino Transferase 48 U/L (17-59); Bilirubin,Total 0.3 mg/dL (0.2-1.3); Blood Urea Nitrogen 16 mg/dL (9-20); Calcium 9.4 mg/dL (8.4-10.2); Carbon Dioxide 25 mmol/L (22-30); Chloride 106 mmol/L (98-107); Estimated Glomerular Filt Rate > 60; Glucose 99 mg/dL (65-110); Sodium 138 mmol/L (137-145)
[2024-07-17 20:28] LABS: Hematocrit 40.5 % (42.0-52.0); Hemoglobin 12.8 g/dL (14.0-18.0); Mean Corpuscular HGB Conc 31.6 g/dl (32-36); Mean Corpuscular Volume 98.1 fl (80-100); Mean Platelet Volume 9.5 fl (7.4-10.4); Platelet Count Result 401 k/mm3 (150-375); Red Blood Count 4.13 M/mm3 (4.6-6.20); Red Cell Distribution Width 16.5 % (11.5-14.5)
[2024-07-17 20:35] LABS: LDL Cholesterol Direct 31 mg/dL
[2024-07-17 20:40] LABS: Hemoglobin A1C 4.8 % (<5.7)
[2024-07-17 20:52] LABS: Prostate Specific Antigen 0.7 ng/mL (< OR = 4.0)
[2024-07-17 20:54] LABS: Iron 69 ug/dL (49-181)
[2024-07-17 21:04] LABS: Percent Iron Saturation 18 % (20-50)
[2024-07-17 21:52] LABS: HDL Direct > 110 mg/dL
[2024-07-19 12:03] LABS: Homocysteine 12.6 umol/L (< or = 15.2)
[2024-07-19 12:14] LABS: Red Blood Cell Folate 586 ng/mL RBC (>280)
[2024-07-20 15:44] LABS: Methylmalonic Acid 94 nmol/L (69-390)
[2024-07-21 00:33] LABS: Immunofixation, Serum Normal pattern.
== END 2024-07-17 08:40 | disposition home or self-care (01) ==
PROVIDERS: PCP Nurse Practitioner Adult Health; Visit Provider Psychiatry & Neurology Neurology
DX: G25.81 Restless legs syndrome (principal); I67.9 Cerebrovascular disease, unspecified; R32 Unspecified urinary incontinence; G95.9 Disease of spinal cord, unspecified; G62.9 Polyneuropathy, unspecified; R27.0 Ataxia, unspecified; F03.90 Unspecified dementia, unspecified severity, without behavioral disturbance, psychotic disturbance, mood disturbance, and anxiety; Z79.899 Other long term (current) drug therapy; E55.9 Vitamin D deficiency, unspecified; R41.3 Other amnesia; I10 Essential (primary) hypertension; D64.9 Anemia, unspecified; Z12.5 Encounter for screening for malignant neoplasm of prostate
CPT/HCPCS: 36415; 80053; 80061; 82607; 82652; 82747; 83036; 83090; 83540; 83550; 83921; 84153; 84207; 84425; 84443; 85027; 86334; G0103

== ENCOUNTER 2024-07-19 07:50 | Outpatient (CLI) | payer MEDICARE, SELFPAY ==
--- OUTSIDE RECORDS SUMMARY | 2024-07-19 07:55 | XMS_ITS | Referral Summary ---
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 Gender Identity Not on file Sexual Orientation [...] on file Medical Devices Implanted Type Area Print Line Supervisor Device Identifier Shelf Expiration Date Model / Serial / Lot [employer] Corkscrew L4.75 Mr Tape Full Thread [place] Suture Biocomposite Sterile Disposable Latex Free [id number] - [id number] Implanted:Qty: 1 on 10/07/2022 by Branden Ramírez MD at [facility] Right: Shoulder [employer] [id number] 06/07/2026 AR-1927BC T-475 / / [id number] [employer] Corkscrew L4.75 Mr Tape Full Thread [place] Suture Biocomposite Sterile Disposable Latex Free [id number] - [id number] Implanted:Qty: 1 on 10/07/2022 by Branden Ramírez MD at [facility] Right: Shoulder [employer] [id number] 06/07/2026 AR-1927BC T-475 / / [id number] [employer] Corkscrew L4.75 Mr Tape Full Thread [place] Suture Biocomposite Sterile Disposable Latex Free [id number] - [id number] Implanted:Qty: 1 on 10/07/2022 by Branden Ramírez MD at [facility] Right: Shoulder [employer] [id number] 06/07/2026 AR-1927BC T-475 / / [id number] [employer] Ar-2324 Bcm Swivelock 4.75mm 24.5mm Self Punch Vent Shoulder [place] Suture - [id number] Implanted:Qty: 1 on 10/07/2022 by Branden Ramírez MD at [facility] Right: Shoulder [employer] [id number] 07/08/2026 AR-2324BC M / / [id number] [employer] Ar-2324 Bcm Swivelock 4.75mm 24.5mm Self Punch Vent Shoulder [place] Suture - [id number] Implanted:Qty: 1 on 10/07/2022 by Branden Ramírez MD at [facility] Right: Shoulder [employer] [id number] 07/08/2026 AR-2324BC M / / [id number] Insurance [employer] MEDICARE HMO Care Teams Manager Employee Relations Relationship Specialty Start Date End Date Cristian Longo MD PCP - General Family Practice 09/25/22 Branden Ramírez MD Consulting Physician Orthopedic Surgery 09/23/22
--- OUTSIDE RECORDS SUMMARY | 2024-07-19 07:55 | XMS_ITS | Clinical Summary ---
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 Right: Shoulder [employer] [id number] 06/07/2026 AR-1927BC T-475 / / [id number] [employer] Corkscrew L4.75 Mr Tape Full Thread [place] Suture Biocomposite Sterile Disposable Latex Free [id number] - [id number] Implanted:Qty: 1 on 10/07/2022 by Branden Ramírez MD at [facility] Right: Shoulder [employer] [id number] 06/07/2026 AR-1927BC T-475 / / [id number] [employer] Corkscrew L4.75 Mr Tape Full Thread [place] Suture Biocomposite Sterile Disposable Latex Free [id number] - [id number] Implanted:Qty: 1 on 10/07/2022 by Branden Ramírez MD at [facility] Right: Shoulder [employer] [id number] 06/07/2026 AR-1927BC T-475 / / [id number] [employer] Ar-2324 Bcm Swivelock 4.75mm 24.5mm Self Punch Vent Shoulder [place] Suture - [id number] Implanted:Qty: 1 on 10/07/2022 by Branden Ramírez MD at [facility] Right: Shoulder [employer] [id number] 07/08/2026 AR-2324BC M / / [id number] [employer] Ar-2324 Bcm Swivelock 4.75mm 24.5mm Self Punch Vent Shoulder [place] Suture - [id number] Implanted:Qty: 1 on 10/07/2022 by Branden Ramírez MD at [facility] Right: Shoulder [employer] [id number] 07/08/2026 AR-2324BC M / / [id number] Insurance [employer]NA MEDICARE HMO Care Teams Speed Reading Teacher Relationship Specialty Start Date End Date Cristian Longo MD PCP - General Family Practice 09/25/22 Branden Ramírez MD Consulting Physician Orthopedic Surgery 09/23/22
--- OUTSIDE RECORDS SUMMARY | 2024-07-19 07:55 | XMS_ITS | Clinical Summary ---
Author Organization [facility] Address [address] [place] [address] Phone Care Team Providers Care Group Leader Name Role Phone Lilian Sales Devon AMEZCUA Primary Care Provider [phone] Allergies No known active allergies Medications donepezil [...] on file Legal Sex Male 11:47 AM RRT Gender Identity Not on file Sexual Orientation [...] topic Insurance MEDICARE C HUMANA Care Teams Group Leader Relationship Specialty Start Date End Date Lilian Sales APRN PCP - General Advanced Practice Nurse 09/21/23
[2024-07-19 21:05] LABS: IFOB Positive Control Positive; Immunochemical Fecal Occult Bl Positive (N)
== END 2024-07-19 07:51 | disposition home or self-care (01) ==
PROVIDERS: PCP Nurse Practitioner Adult Health; Visit Provider Nurse Practitioner Adult Health
DX: D64.9 Anemia, unspecified (principal)
CPT/HCPCS: 82274

== ENCOUNTER 2024-07-31 06:38 | Outpatient (CLI) | payer MEDICARE, SELFPAY ==
--- NOTE | 2024-07-31 10:29 | WPDNEUROLOGY ---
Neurology EEG Report General Information Date of Study: 07/31/24 TEST Electroencephalogram DIAGNOSIS Possible dementia /episodes of memory loss CONDITION OF RECORDING Neurodiagnostic lab EEG NUMBER [id number] CLINICAL HISTORY Patient has episodes of memory loss once every 5-6 weeks since January 2024 and is getting worse. EEG DESCRIPTION During wakefulness the background activity consists of posterior dominant alpha rhythm at 9 hertz with an amplitude of 20-40 microvolts which appears moderately formed and reactive to eye opening. Anteriorly low amplitude mixed frequency activity was seen. There is a mild anteroposterior gradient. Ventilation was not performed. Photic stimulation was performed which driving response was seen at several flash rates which appears symmetric. Patient progressed to stage I and 2 sleep during which vertex waves sleep spindles and K complexes were seen. IMPRESSION This is a normal EEG obtained during awake and sleep states.
== END 2024-07-31 06:39 | disposition home or self-care (01) ==
PROVIDERS: PCP Nurse Practitioner Adult Health; Visit Provider Psychiatry & Neurology Neurology
DX: G25.81 Restless legs syndrome (principal); Z87.828 Personal history of other (healed) physical injury and trauma; I67.9 Cerebrovascular disease, unspecified; R32 Unspecified urinary incontinence; G95.9 Disease of spinal cord, unspecified; G62.9 Polyneuropathy, unspecified; R27.0 Ataxia, unspecified; F03.90 Unspecified dementia, unspecified severity, without behavioral disturbance, psychotic disturbance, mood disturbance, and anxiety
CPT/HCPCS: 95816

== ENCOUNTER 2024-08-01 14:58 | Outpatient (CLI) | payer MEDICARE, SELFPAY ==
--- NOTE | ~2024-08-01 | US_ITS ---
EXAMINATION: US carotid duplex BI DATE: 08/01/2024 16:43 CDT INDICATION: Unspecified visual disturbances TECHNIQUE: Grayscale, color Doppler, and pulsed Doppler images of the cervical carotid arteries were obtained. The degree of vessel stenosis is placed in one of the following categories: normal, <50%, 50-69%, >=7 0% but less than near-occlusion, near-occlusion, or total occlusion. Note that percent stenosis relative to normal distal artery lumen diameter is indirectly measured fro m velocity measurements as described originally by Jr, et al. Radiology 2003; 229:340-346 and upda kassandra by Joaquin Moreira et al STROKE 2012;43(3);915-921. COMPARISON: None. FINDINGS: There is mild atherosclerosis of both carotid arteries. Peak systolic velocity (in cm/s) is detailed below RIGHT: Right common carotid artery (CCA): 65 cm/s. Right internal carotid artery (ICA) PSV: 94 cm/s. Right ICA end-diastolic velocity (EDV): 25 cm/s. Right ICA/CCA PSV ratio is 1.4. Right external carotid artery (ECA): 113cm/s. There is antegrade flow in the right vertebral artery LEFT: Left common carotid artery (CCA): 104 cm/s. Left internal carotid artery (ICA) PSV: 124 cm/s. Left ICA end-diastolic velocity (EDV): 25 cm/s. Left ICA/CCA PSV ratio is 1.2. Left external carotid artery (ECA): 98cm/s. There is antegrade flow in the left vertebral artery. IMPRESSION: 1. Less than 50% stenosis in the right internal carotid artery. 2. Less than 50% stenosis in the left internal carotid artery. Reviewed, dictated and finalized at location A.
== END 2024-08-01 14:59 | disposition home or self-care (01) ==
PROVIDERS: PCP Nurse Practitioner Adult Health; Visit Provider Nurse Practitioner Adult Health
DX: H53.9 Unspecified visual disturbance (principal); I67.89 Other cerebrovascular disease; R41.3 Other amnesia; I65.23 Occlusion and stenosis of bilateral carotid arteries
CPT/HCPCS: 93880

== ENCOUNTER 2024-08-03 09:00 | Outpatient (CLI) | payer MEDICARE, SELFPAY ==
--- NOTE | ~2024-08-03 | MR_ITS ---
MRI of the lumbar spine Clinical History: Restless leg syndrome Technique: Axial T2-weighted images, and sagittal T1-weighted, T2-weighted, and T2 fat-sat images wer e acquired. Findings: There is no fracture or subluxation of the lumbar spine. There is straightening of the norm al lumbar lordosis. No suspicious bone marrow signal abnormality seen. At L1-L2, there is minimal disc bulge and mild to moderate facet arthropathy. No central canal stenos is. Neural foramina are preserved. At L2-L3, there is severe degenerative disc narrowing. Disc bulge and moderate facet arthropathy resu lt in severe spinal canal stenosis/thecal sac compression. There is severe left neural foraminal narr owing, and moderate to advanced right neural foraminal narrowing. At L3-L4, there is severe degenerative distended. There is minimal disc bulge and mild facet arthropa thy. No central canal stenosis. There is severe left neural foraminal narrowing, and moderate to remberto re right neural foraminal narrowing. At L4-L5, there is diffuse disc bulge plus posterior right paracentral to right foraminal region with moderate facet arthropathy. No central canal stenosis. There is moderate to severe right neural fora morteza narrowing. Left neural foramen preserved. At L5-S1, there is no disc bulge or herniation. There is moderate to advanced facet arthropathy. No c entral canal stenosis. There is moderate right neural foraminal narrowing. Left neural foramen preser petros. Paravertebral soft tissues are unremarkable. Impression: Severe degenerative spondylosis at L2-L3, as detailed above. Moderate to advanced degenerative spondylosis at L3-L4, as above. Moderate degenerative change at L4-L5 and L5-S1, as above. Reviewed, dictated and finalized at [facility]. Impression: Severe degenerative spondylosis at L2-L3, as detailed above. Moderate to advanced degenerative spondylosis at L3-L4, as above. Moderate degenerative change at L4-L5 and L5-S1, as above.
--- NOTE | ~2024-08-03 | MR_ITS ---
MRI of the thoracic spine Clinical History: Restless leg syndrome Technique: Axial T2-weighted and gradient images, and sagittal T1-weighted, T2-weighted, and STIR ana ges were acquired. Findings: There is no fracture or subluxation of the thoracic spine. Vertebral bodies maintain normal height and alignment. No suspicious bone marrow signal abnormality seen. No significant disc bulge or herniation seen in the thoracic spine. There are mild facet joint degene rative changes. No spinal canal stenosis or cord compression. Neural foramina are preserved throughou t the thoracic spine. No abnormal signal seen in the spinal cord. Paravertebral soft tissues are unremarkable. Impression: No significant abnormality. Reviewed, dictated and finalized at location . Impression: No significant abnormality.
--- NOTE | ~2024-08-03 | MR_ITS ---
MRI of the cervical spine Clinical History: Restless leg syndrome Technique: Axial T2-weighted and gradient images, and sagittal T1-weighted, T2-weighted, and STIR ana ges were acquired. Findings: There is no fracture or subluxation of the cervical spine. Vertebral bodies maintain normal height and line. No bone marrow signal abnormality seen. C2-C3, there is no disc bulge or herniation. No spinal canal stenosis, cord compression or neural for aminal narrowing. C3-C4, there is advanced degenerative disc narrowing. There is mild disc osteophyte complex. There is mild canal stenosis without shira cord compression. There is bilateral neural foraminal narrowing. At C4-C5, there is advanced degenerative disc narrowing. There is disc osteophyte complex with canal stenosis and minimal flattening the ventral cord. There is mild bilateral neural foraminal narrowing. At C5-C6, there is degenerative disc narrowing with disc osteophyte complex, most pronounced the righ t foraminal region. There is mild canal stenosis without shira cord compression. There is severe righ t neural foraminal narrowing. Possible minimal left neural foraminal narrowing. At C6-C7, there is advanced degenerative disc narrowing. There is minimal disc osteophyte complex. No canal stenosis, cord compression, or definite neural foraminal narrowing. No abnormal signal seen in the spinal cord. Paravertebral soft tissues are unremarkable. Impression: Moderate degenerative spondylosis, as above, worst at C4-C5 and C5-C6. Reviewed, dictated and finalized at [facility]. Impression: Moderate degenerative spondylosis, as above, worst at C4-C5 and C5-C6.
== END 2024-08-03 09:01 | disposition home or self-care (01) ==
LOC: GOSHIMG 09:01
PROVIDERS: PCP Nurse Practitioner Adult Health; Visit Provider Psychiatry & Neurology Neurology
DX: G25.81 Restless legs syndrome (principal); I67.9 Cerebrovascular disease, unspecified; R32 Unspecified urinary incontinence; G95.9 Disease of spinal cord, unspecified; G62.9 Polyneuropathy, unspecified; R27.0 Ataxia, unspecified; F03.90 Unspecified dementia, unspecified severity, without behavioral disturbance, psychotic disturbance, mood disturbance, and anxiety; M47.892 Other spondylosis, cervical region; M47.896 Other spondylosis, lumbar region; M51.369 Other intervertebral disc degeneration, lumbar region without mention of lumbar back pain or lower extremity pain
CPT/HCPCS: 72141; 72146; 72148

== ENCOUNTER 2024-09-28 00:39 | Day surgery (SDC) | payer MEDICARE, SELFPAY ==
--- OUTSIDE RECORDS SUMMARY | 2023-06-15 06:18 | XMS_ITS | Continuity of Care Document ---
Author Organization [facility] Address [address] [place] [address] Phone Care Team Providers Care Lubrication Supervisor Name Role Phone Branden Ramírez MD Unavailable Unavailable Allergies, Adverse Reactions, Alerts Substance Reaction Status Criticality No Known Allergies Active No Inform ation Medications Medication Instructions Dosage Effective Dates (start - stop) Status Comments atorvastatin 10 mg tablet take 1 tablet by oral route every day 10 MG - Active fluoxetine 20 mg tablet take 1 tablet by oral route every day in the morning 20 MG - Active bupropion HCl 100 mg tablet take 1 tablet by oral route 2 times every day 100 MG - Active sildenafil 50 mg tablet take 1 tablet by oral route every day as needed approximately 1 hour before sexual activity 50 MG - Active trazodone 50 mg tablet take 1 tablet by oral route every day at bedtime 50 MG - Active Procedures Procedure Date Office/outpatient visit,est, mod 2022 Iglesia Sling With Waist Strap, Off The She lf Global/Postop followup visit Global/Postop followup visit Arthroscopic Rotator Cuff Repair 2022 Debridement Extensive Subacromial Decompression Office/outpatient visit,est, mod 2022 X-ray exam shoulder complete, minimum 2 views Advance Directives Directive Yes / No Effective Date File Name No Information Encounters Encounter Description Practice Location Reason(s) For Visit Diagnoses Date Provider Providers Copied on Encounter [facility], [address], [place], [place], [id number], [place] tel:[phone] [facility] No Information 4 Ramírezmegan Otero. [address] [facility], [place] [address], [place], [address], [place]. tel:[phone] Office/outpa tient visit,est, mod [facility], [address] [address], [place], [place], [id number], [place] tel:[phone] [facility] Follow Up of right shoulder (chief complaint) Complete rotatr-cuff tear/ruptr of r shoulder, not trauma 3 Darrell Otero. [address] [address], [place], [address], [place]. tel:[phone] Referring Provider: Branden Dotson, [facility] [address], [place], [address]. tel:[phone] [facility], [address], [id number], [place] [phone] [facility] Complete rotatr-cuff tear/ruptr of r shoulder, not trauma 3 Darrell Otero. [address] [facility], [place] [address], [place], [address], [place]. tel:[phone] Referring Provider: Branden Dotson, [facility] [address] [address], [place], [address]. tel:[phone] [facility], [address] [address], [place], [place], [id number], [place] tel:[phone] [facility] r shoulder (chief complaint) Complete rotatr-cuff tear/ruptr of r shoulder, not trauma 3 Darrell Otero. [address] [facility], [place] [address], [place], [address], [place]. tel:[phone] Referring Provider: Branden Dotson, [facility] [address] [address], [place], [address]. tel:[phone] [facility], [address] [address], [place], [place], [id number], [place] tel:[phone] [facility] Right Shoulder (chief complaint) Complete rotatr-cuff tear/ruptr of r shoulder, not trauma Oct- 3 Darrell Otero. [address] [facility], [address], [place], [address], [place]. tel:[phone] Referring Provider: Branden Dotson, [address] [facility] [address], [place], [address]. tel:[phone] [facility], [address] [facility] [address], [place], [place], [id number], [place] tel:[phone] [facility] Complete rotator cuff rupture of right shoulderImpingeme nt syndrome of right shoulder 3 Darrell Otero. [address] [facility], [place] [address], [place], [address], [place]. tel:[phone] Referring Provider: Branden Dotson, [address] [facility] [address], [place], [address]. tel:[phone] [facility], [address] [address], [place], [place], [id number], [place] tel:[phone] [facility] Complete rotator cuff rupture of right shoulderBicipital tendinitis, right shoulder 3 Darrell Otero. [address] [facility], [address], [place], [address], [place]. tel:[phone] Office/outpa tient visit,est, mod [facility], [address] [facility] [address], [place], [place], [id number], [place] tel:[phone] [facility] Upper right arm and shoulder (chief complaint) Pain in right shoulderComplete rotator cuff rupture of right shoulderBicipital tendinitis, right shoulder Sep- 3 Darrell Otero. [address] [facility], [facility] [address], [place], [address], [place]. tel: [phone] Referring Provider: rBanden Ramírez T, [address] [facility] [address], [place], [address]. tel:[phone] Family History Family Member Type Diagnosis Age At Onset Mother Problem (finding) Heart Disease Father Problem (finding) Heart Disease Payers Payer name Insurance type Covered alliance party ID Authoriza tion(s) [employer] Medicare HMO PPO Clai ms Office CI [id number] Social History Type Description Quantity Date Captured Comments Alcohol Use Details Unknown Caffeine Use Details Unknown Tobacco Use Status No Information Smoking Status No Information Sex Female Chief Complaint And Reason For Visit No Information Reason For Referral Reason For Referral No Information Plan Of Treatment Date Type Action Status Referral Ordered: X-ray exam shoulder complete, minimum 2 views RT ordered History Of Present Illness Encounter Date Complaint History Of Prese nt Illness Follow Up of right shoulder Geronimo y presents to office for follow-up on right shoulder. r shoulder patient presents to the office today for follow up right shoulder Right Shoulder Upper right arm and shoulder Functional Status Date Functional Assessmen t No Information Instructions Date Instruction Additional Infor mation No Information Assessments Type Assessment Date No Information Patient Care Teams Name Effective Dates (start - stop) Status Members No Information
[2024-09-20 09:42] VITALS: BMI 24.2
--- OUTSIDE RECORDS SUMMARY | 2024-09-28 00:42 | XMS_ITS | Clinical Summary ---
Author Organization [facility] Address [address] [place] [address] Phone Care Team Providers Care Durability Technician Name Role Phone Lilian Sales Devon AMEZCUA Primary Care Provider [phone] Allergies No known active allergies Medications donepezil [...] Date Smoking Tobacco: Every Day Cigarettes 1 40.6 Started: 02/09/1984 Smokeless Tobacco: Never Tobacco Cessation:Ready to Q uit: Not Asked; Counseling Given: Not Answered Alcohol Use Standard Drinks/Week Comments Yes 0 (1 standard drink = 0.6 oz pur e alcohol) 2 Sex and Gender Information Value Date Recorded Sex Assigned at Not on file Legal Sex Male 11:47 AM [employer] Gender Identity Not on file Sexual Orientation [...] years) (1 of 2 - PCV) 1973 Cologuard 11/22/1999 Colonoscopy 11/22/1999 Colorectal Cancer Screening 11/22/1999 Immunochemical Fecal Occult Blood 11/22/1999 Lung Cancer Screening 2004 PSA Discussion 2009 AAA Screening Ultrasound 11/22/2019 SARS-COV-2 Immunization ( season) 2023 11/06/2021, 01/27/2021, 03/22/2020, Additional history exists Influenza Immunization (#1) 10/09/202412/09, 11/06/2021, 12/10/2020, Additional history exists Zoster Immunization Completed 08/29/2020, 0 Respiratory Syncytial Virus (RSV) Immunization (Adult) Completed 12/23/2022 Hepatitis B Immunization Aged Out No longer eligible based on patient's age to complete this topic Human Papillomavirus (HPV) Immunization Aged Out No longer eligible based on patient's age to complete this topic Meningococcal Immunization (ACWY) Aged Out No longer eligible based on patient's age to complete this topic Rotavirus Immunization Aged Out No lo nger eligible based on patient's age to complete this topic Insurance MEDICARE C [employer] Care Teams Durability Technician Relationship Specialty Start Date End Date Lilian Sales APRN PCP - General Advanced Practice Nurse 09/21/23
[2024-09-28 11:50] VITALS: BP 154/74; PULSE 70; RESP 18; TEMP 36.6; O2SAT 97
--- NOTE | 2024-09-28 12:01 | WPDANESEPPF ---
Anes - Initial Pre Proc Eval Procedure: Operation Date: 09/28/24 13:00 Proposed Procedures p Diagnostic Colonoscopy - Isaias Gregg MD Date/Time: 09/28/24 12:01 Surgeon: Isaias Gregg MD Pre Op Diagnosis: Personal history of colon polyps, unspecified Patient Data Age: 68 Gender: M Height: 1.68 m Weight: 65.5 kg Last Vital Signs Temp 36.6 C 09/28/24 11:50 Pulse 70 09/28/24 11:50 Resp 18 09/28/24 11:50 BP 154/74 H 09/28/24 11:50 Pulse Ox 97 09/28/24 11:50 O2 Del Method Room Air 09/28/24 11:50 Allergies Allergy/AdvReac Type Severity Reaction Status Date / Time No Known Allergies Allergy Verified 09/20/24 09:40 Home Medications ?Medication ?Instructions ?Recorded ?Confirmed ?Type atorvastatin 40 mg tablet See Rx Instructions .Route 01/10/24 09/28/24 Rx .COMPLEX #90 tabs donepezil 10 mg tablet 10 mg PO ONCE #90 tabs 01/10/24 09/28/24 Rx fluoxetine 40 mg capsule See Rx Instructions .Route 01/10/24 09/28/24 Rx .COMPLEX #90 caps omeprazole 40 mg capsule,delayed See Rx Instructions .Route 01/10/24 09/28/24 Rx release .COMPLEX #90 caps trazodone 50 mg tablet See Rx Instructions .Route 01/10/24 09/20/24 Rx .COMPLEX #180 tabs memantine 10 mg tablet See Rx Instructions .Route 02/15/24 09/28/24 Rx .COMPLEX #180 tabs amlodipine 10 mg tablet See Rx Instructions .Route 05/29/24 09/28/24 Rx .COMPLEX #90 tabs sildenafil 100 mg tablet (Viagra) 100 mg PO DAILY PRN sexual 05/31/24 09/20/24 Rx activity #30 tabs meloxicam 7.5 mg tablet See Rx Instructions .Route 07/10/24 09/28/24 Rx .COMPLEX #60 tabs bupropion HCl 300 mg 24 hr tablet, See Rx Instructions .Route 08/09/24 09/28/24 Rx extended release .COMPLEX #90 tabs Patient hx anesthesia problems: none Family hx anesthesia problems: none Results Review: All pre-operative results and documents have been reviewed as part of the pre-operative evaluation. [facility] Past Medical History Medical History (Updated 08/07/24 @ 12:28 by Idania Savage MD) Incontinence of urine Falls frequently Restless legs Cerebrovascular disease Urinary incontinence Cervical myelopathy Peripheral neuropathy Ataxia Dementia Cataract Colon cancer screening Chronic GERD patient currently on proton pump inhibitor well controlled Anxiety Hypertension Surgical History Surgical History History of appendectomy Family History Family History Father Hypertension Heart problem Mother Diabetes mellitus Hypertension Heart problem Social History Social History (Updated 09/28/24 @ 12:08 by Brandyn Vasquez DO) Smoking packs per day: 1 Smoking cigarettes per day: 20.0 Years smoked: 30 Smoking pack-years: 30.00 Smoking status: Current every day smoker Tobacco type: cigarettes Alcohol intake: current Alcohol use details: 6 pack/day Substance use: current Substance use type: marijuana Other substance usage details: daily Do You Feel Safe in your Home?: Yes Lack of Transportation: No Lack of Food: Never True Current Housing: I Have Housing Concerned About Future Housing: No Difficulty Paying Gas/Electric Bills: No Difficulty Paying for Meds: No Currently Unemployed: No Education: Trade/Vocational Certificate Difficulty w/ Childcare or Family Care: No Living arrangements: with family Occupation/Education: retired Spiritual care concerns: No Anes - Eval Final PreProcedure Day of Procedure 09/28/24 12:01 Patient weight: normal Heart: regular rate and rhythm Lungs: clear to auscultation and normal air movement Airway: Mallampati scale class II Neurological: alert and oriented Last oral intake: >/= 8 hours ASA classification: III Emergent: no Anesthetic plan: proceed Anesthesia type and monitoring: general GIVS and standard monitoring Results Review: All pre-operative results and documents have been reviewed as part of the pre-operative evaluation. Informed Consent: The patient's anesthetic plan and its attendant risks and benefits were discussed with the patient/family/POA. Questions were solicited and answers provided to the satisfaction of the patient/family/POA.
[2024-09-28] MEDS: LACTATED RINGERS 1,000 ML 150 ML IV CONT (12:03)
--- NOTE | 2024-09-28 12:44 | P.HP_ITS ---
History of Present Illness History of Present Illness Consent: Risks, benefits, and alternatives have been discussed and questions answered. Patient agrees to proceed with procedure. Chief complaint: Personal history of colon polyps, unspecified Narrative: Gloria Diego Sr. is a 68 year old male with polyp in 2020 Review of Systems Review of Systems: All systems reviewed & are unremarkable except as noted in HPI and below PMFSH Past Medical History Medical History (Updated 08/07/24 @ 12:28 by Idania Savage MD) Incontinence of urine Falls frequently Restless legs Cerebrovascular disease Urinary incontinence Cervical myelopathy Peripheral neuropathy Ataxia Dementia Cataract Colon cancer screening Chronic GERD patient currently on proton pump inhibitor well controlled Anxiety Hypertension Surgical History Surgical History History of appendectomy Family History Family History Father Hypertension Heart problem Mother Diabetes mellitus Hypertension Heart problem Social History Social History (Updated 09/28/24 @ 12:08 by Brandyn Vasquez DO) Smoking packs per day: 1 Smoking cigarettes per day: 20.0 Years smoked: 30 Smoking pack-years: 30.00 Smoking status: Current every day smoker Tobacco type: cigarettes Alcohol intake: current Alcohol use details: 6 pack/day Substance use: current Substance use type: marijuana Other substance usage details: daily Do You Feel Safe in your Home?: Yes Lack of Transportation: No Lack of Food: Never True Current Housing: I Have Housing Concerned About Future Housing: No Difficulty Paying Gas/Electric Bills: No Difficulty Paying for Meds: No Currently Unemployed: No Education: Trade/Vocational Certificate Difficulty w/ Childcare or Family Care: No Living arrangements: with family Occupation/Education: retired Spiritual care concerns: No Meds Home Medications and Allergies Home Medications ?Medication ?Instructions ?Recorded ?Confirmed ?Type atorvastatin 40 mg tablet See Rx Instructions .Route 1 03/12/23 09/28/24 Rx .COMPLEX #90 tabs donepezil 10 mg tablet 10 mg PO ONCE #90 tabs 01/0909/28/24 Rx fluoxetine 40 mg capsule See Rx Instructions .Route 1 03/12/23 09/28/24 Rx .COMPLEX #90 caps omeprazole 40 mg capsule,delayed See Rx Instructions . Route 01/10/24 09/28/24 Rx release .COMPLEX #90 caps trazodone 50 mg tablet See Rx Instructions .Route 1 03/12/23 09/20/24 Rx .COMPLEX #180 tabs memantine 10 mg tablet See Rx Instructions .Route 0 02/15/24 09/28/24 Rx .COMPLEX #180 tabs amlodipine 10 mg tablet See Rx Instructions .Route 0 05/29/24 09/28/24 Rx .COMPLEX #90 tabs sildenafil 100 mg tablet (Viagra) 100 mg PO DAILY PRN sexual 05/31/24 09/20/24 Rx activity #30 tabs meloxicam 7.5 mg tablet See Rx Instructions .Route 0 07/10/24 09/28/24 Rx .COMPLEX #60 tabs bupropion HCl 300 mg 24 hr tablet, See Rx Instructions .Route 08/09/24 09/28/24 Rx extended release .COMPLEX #90 tabs Allergies Allergy/AdvReac Type Severity Reaction Status Date / Time No Known Allergies Allergy Verified 09/20/24 09:40 Vital Signs Vital Signs - 24 hr 09/28/24 11:50 Temperature 97.8 F Pulse Rate 70 Respiratory Rate 18 Blood Pressure 154/74 H Pulse Oximetry 97 Oxygen Delivery Room Air Exam Const: General: comfortable and no acute distress HENMT: Face/Nose/Sinus: Normal nares present Eyes: General: appearance normal, both eyes and all related structures Neck: Neck: no JVD Resp: Auscultation: clear to auscultation bilaterally Cardio: Rate: regular rate Rhythm: regular rhythm GI: Inspection: non-distended GI Palp: Yes Soft to palpation Skin: General skin exam: normal color Neuro: Speech: normal speech Extrem: General: normal to inspection Psych: Mental Status: mental status grossly normal Assessment and Plan Assessment and plan (1) History of colon polyps: Code(s): Z86.0100 - Personal history of colon polyps, unspecified Status: Acute Assessment and Plan: colonoscopy
--- NOTE | 2024-09-28 12:58 | S_PTH ---
PATIENT: Gloria Diego . LOC: [facility]#:[id number] AGE/SX: 68/M ROOM: RE09/28/[address]: Isaias Gregg MD : 1955 BED: DIS: 09/28/2024 SPEC #: [id number] RECD: 09/28/24 14:25 STATUS: SENAIT BONILLA #: [id number] CLARA: 09/28/24 12:[address]: Isaias Gregg DEPT: [facility] Surgical RECD BY: Mar Waite ENTERED: 09/28/24 14:25 SP TYPE: Surgical OTHR DR: Lilian Sales APRN Tissues: A - Colon Polypectomy Procedures: Hematoxylin and Eosin Stain Gross and Microscopic Level 4
[2024-09-28 13:05] VITALS: BP 95/54; PULSE 63; RESP 17; O2SAT 98
[2024-09-28 13:15] VITALS: BP 98/85; PULSE 60; RESP 19; O2SAT 98
[2024-09-28 13:25] VITALS: BP 110/59; PULSE 54; RESP 13; O2SAT 98
== END 2024-09-28 13:30 | disposition home or self-care (01) ==
PROVIDERS: PCP Nurse Practitioner Adult Health; Referring Provider Nurse Practitioner Adult Health; Visit Provider Internal Medicine Gastroenterology
PROC: 0DJD8ZZ Inspection of Lower Intestinal Tract, Via Natural or Artificial Opening Endoscopic (ICD-10-PCS; CPT 45378; principal; 2024-09-28 13:00)
DX: Z12.11 Encounter for screening for malignant neoplasm of colon (principal); D12.2 Benign neoplasm of ascending colon; K64.8 Other hemorrhoids; I10 Essential (primary) hypertension; K21.9 Gastro-esophageal reflux disease without esophagitis; R32 Unspecified urinary incontinence; G25.81 Restless legs syndrome; F03.90 Unspecified dementia, unspecified severity, without behavioral disturbance, psychotic disturbance, mood disturbance, and anxiety; F41.9 Anxiety disorder, unspecified; G62.9 Polyneuropathy, unspecified; F17.210 Nicotine dependence, cigarettes, uncomplicated; F12.90 Cannabis use, unspecified, uncomplicated; Z98.890 Other specified postprocedural states; Z86.79 Personal history of other diseases of the circulatory system; Z82.49 Family history of ischemic heart disease and other diseases of the circulatory system
CPT/HCPCS: 45385; 88305; J2003; J2704; J7120